=== PATIENT | male | born 1975 | race Caucasian/White ===

== ENCOUNTER 2017-03-05 11:16 | Emergency (ER) | payer SELFPAY ==
[~2017-03-05] VITALS: Ht 182.9 cm; Wt 81.6 kg
--- NOTE | 2017-03-05 11:16 | NUR ---
PATIENT BIB [facility].
[2017-03-05 11:17] VITALS: BP 150/99
--- NOTE | 2017-03-05 11:37 | NUR ---
Patient being evaluated by physician at bedside.
[2017-03-05] MEDS: IBUPROFEN 800 MG TAB PO ONE (11:49)
--- NOTE | 2017-03-05 12:31 | NUR ---
PATIENT IS A 41 YO MALE BIB [facility] FOR PRE BOOK EXAM, AWAKE AND ALERT ABLE TO AMBULATE HAS SMALL ABRASIONS TO FACE AND LEFTR HAND. BLEEDING CONTROLLED.
[2017-03-05 14:08] VITALS: BP 150/99
--- NOTE | 2017-03-05 14:09 | NUR ---
Patient discharged with v/s stable. Written and verbal after care instructions given and explained. Patient verbalized understanding. Police with in custody. All questions addressed prior to discharge. Advised to follow up with PMD.
== END 2017-03-05 14:09 | disposition home or self-care (01) ==
LOC: MED 11:16
DX: Z02.89 Encounter for other administrative examinations (principal); S00.83XA Contusion of other part of head, initial encounter; S00.212A Abrasion of left eyelid and periocular area, initial encounter; Y35.391A Legal intervention involving other blunt objects, law enforcement official injured, initial encounter; Y93.89 Activity, other specified; Y92.488 Other paved roadways as the place of occurrence of the external cause
CPT/HCPCS: 70110; 70200; 99284